=== PATIENT | male | born 1980 | race Hispanic/Latino ===

== ENCOUNTER 2018-09-19 10:49 | Emergency (ER) | payer OTHER, SELFPAY ==
[2018-09-19 11:39] LABS: Absolute Monocytes 0.5 K/uL (0.1-1.3); Absolute Neutrophil 7.6 K/uL (1.8-8.0); Basophils % 0.4 % (0-1.3); Eosinophils % 0.4 % (0-4.4); Hematocrit 48.5 % (39.6-49.0); Lymphocytes % 19.7 % (15.3-44.8); MPV 9.2 fL (7.6-11.3); Monocytes % 5.3 % (3.3-12.3); RBC Red Blood Cell Count 5.81 M/uL (4.33-5.43)
[2018-09-19] MEDS ORDERED: LIDOCAINE VISCOUS 2% SOLN 15 ML UDC ONE (11:43)
[2018-09-19] MEDS ORDERED: MAGNE/ALUM HYDROXD 30 ML UCUP ONE (11:43)
[2018-09-19 11:58] LABS: Albumin 4.1 g/dL (3.4-5.0); Bilirubin Total 0.6 mg/dL (0.2-1.0); Potassium 4.5 mmol/L (3.5-5.1); Protein, Total 7.6 g/dL (6.4-8.2)
[2018-09-19 12:18] LABS: Urine Blood NEGATIVE (NEG); Urine Glucose 2+ (NEG); Urine Protein NEGATIVE (NEG)
--- NOTE | 2018-09-19 12:32 | RAD REPORT ---
EXAM DESCRIPTION: CTAbdomen Pelvis W Contrast - 09/19/2018 12:25 pm CLINICAL HISTORY: Abdominal pain. ABD PAIN COMPARISON: CT-STONE PROTOCOL dated 02/06/2009 TECHNIQUE: Biphasic CT imaging of the abdomen and pelvis was performed with 100 ml non-ionic IV cont rast. All CT scans are performed using dose optimization technique as appropriate and may include automated exposure control or mA/KV adjustment according to patient size. FINDINGS: The lung bases are clear. The liver shows diffuse fatty infiltration. The spleen, pancreas, adrenal glands and kidneys are with in normal limits. No bowel obstruction, free air, free fluid or abscess. The appendix is normal. No evidence of signi ficant lymphadenopathy. No suspicious bony findings. IMPRESSION: No acute intra-abdominal or pelvic finding. Diffuse fatty liver.
--- NOTE | 2018-09-19 12:44 | ER ---
Nurse's Notes [facility] Name: Manish Hernandez Age: 37 yrs Sex: Male : 1980 Arrival Date: 09/19/2018 Time: 10:52 Bed 24 Private MD: Diagnosis: Diabetes Mellitus;Abdominal pain;polyuria Presentation: 09/19 11:05 Presenting complaint: Patient states: Lower mid abdominal cramping that radiates up for aj 2 days, worse at night. Patient reports he has not had a good BM in 2-3 weeks but has not tried OTC medications. Transition of care: patient was not received from another setting of care. Onset of symptoms was September 17, 2018. Risk Assessment: Do you want to hurt yourself or someone else? Patient reports no desire to harm self or others. Initial Sepsis Screen: Does the patient meet any 2 criteria? No. Patient's initial sepsis screen is negative. Does the patient have a suspected source of infection? No. Patient's initial sepsis screen is negative. Care prior to arrival: None. 11:05 Method Of Arrival: Ambulatory 11:05 Acuity: ZHAO 3 aj Triage Assessment: 11:07 General: Appears in no apparent distress. comfortable, Behavior is calm, cooperative, aj appropriate for age. Pain: Complains of pain in umbilical area and suprapubic area Pain currently is 6 out of 10 on a pain scale. Neuro: Level of Consciousness is awake, alert, obeys commands, Oriented to person, place, time, situation, Appropriate for age. Respiratory: Airway is patent Respiratory effort is even, unlabored, Respiratory pattern is regular, symmetrical. GI: Abdomen is non-distended, obese. Derm: Skin is intact, is healthy with good turgor, Skin is pink, warm \\T\\ dry. normal. Historical: - Allergies: 11:07 No Known Allergies; aj - Home Meds: 11:07 None [Active]; aj - PMHx: 11:07 None; aj - PSHx: 11:07 None; aj - Immunization history:: Adult Immunizations up to date. - Social history:: Smoking status: Patient/guardian denies using tobacco. - Ebola Screening: : Patient negative for fever greater than or equal to 101.5 degrees Fahrenheit, and additional compatible Ebola Virus Disease symptoms Patient denies exposure to infectious person Patient denies travel to an Ebola-affected area in the 21 days before illness onset No symptoms or risks identified at this time. Screenin:25 Abuse screen: Denies threats or abuse. Denies injuries from another. Nutritional ss screening: No deficits noted. Tuberculosis screening: Never had TB. Fall Risk None identified. Assessment: 11:30 General: Appears in no apparent distress. comfortable, Behavior is calm, cooperative, ss Denies fever, feeling ill, fatigue, chills. Pain: Complains of pain in suprapubic area and umbilical area Pain currently is 7 out of 10 on a pain scale. Quality of pain is described as crampy, "is worse at night" Pain began 2-3 days ago. Is intermittent. Neuro: Level of Consciousness is awake, alert, obeys commands, Oriented to person, place, time, situation. Cardiovascular: Capillary refill < 3 seconds is brisk in bilateral fingers. Respiratory: Airway is patent Respiratory effort is even, unlabored, Respiratory pattern is regular, symmetrical, Denies cough, shortness of breath pain with respiration, pain with cough, pain with movement. GI: Abdomen is round non-distended, Bowel sounds present X 4 quads. Abd is soft and non tender X 4 quads. Patient currently denies diarrhea, nausea, vomiting. : No signs and/or symptoms were reported regarding the genitourinary system. Denies burning with urination, urinary frequency. EENT: Nares are clear Oral mucosa is moist. Derm: Skin is intact, is healthy with good turgor, Skin is dry, Skin is pink, warm \\T\\ dry. normal. Musculoskeletal: Circulation, motion, and sensation intact. Range of motion: intact in all extremities, Swelling absent. 13:30 Reassessment: Patient appears in no apparent distress at this time. No changes from aj1 previously documented assessment. Patient and/or family updated on plan of care and expected duration. Pain level reassessed. Patient is alert, oriented x 3, equal unlabored respirations, skin warm/dry/pink. Vital Signs: 11:07 BP 140 / 91; Pulse 75; Resp 19; Temp 97.4; Pulse Ox 97% on R/A; Weight 108.86 kg; aj Height 5 ft. 8 in. (172.72 cm); 13:37 BP 137 / 82; Pulse 88; Resp 18; Pulse Ox 97% on R/A; aj1 11:07 Body Mass Index 36.49 (108.86 kg, 172.72 cm) ED Course: 10:52 Patient arrived in ED. rg4 11:00 Peter Kovacs MD is Attending Physician. ps1 11:06 Triage completed. aj 11:07 Arm band placed on left wrist. Patient placed in an exam room, on a stretcher. aj 11:18 Joan Campa RN is Primary Nurse. ss 11:25 Patient has correct armband on for positive identification. Bed in low position. Call ss light in reach. 11:25 Inserted saline lock: 20 gauge in right antecubital area, using aseptic technique. ss Blood collected. 11:35 Urine collected: clean catch specimen, cloudy, flaca colored. jb1 12:23 CT completed. Patient tolerated procedure well. Patient moved to CT via wheelchair. Patient moved back from CT. 12:25 CT Abd/Pelvis - W/Contrast In Process Unspecified. EDMS 13:36 No provider procedures requiring assistance completed. IV discontinued, intact, aj1 bleeding controlled, No redness/swelling at site. Pressure dressing applied. Administered Medications: 11:31 Drug: GI Cocktail without - (Maalox Suspension 30 ml, Lidocaine Liquid 2 % 15 ss ml) Route: PO; Outcome: 12:44 Discharge ordered by . ps1 13:37 Discharged to home ambulatory. aj1 13:37 Condition: good 13:37 Discharge instructions given to patient, family, Instructions given in both [place] and [place] per patient request Instructed on discharge instructions, follow up and referral plans. medication usage, how to check blood sugar, do not take Metformin if FSBS is less than 80, drink juice if blood sugar is less than 80. Patient was given information on local sliding scale clinics as well as the [facility]. Demonstrated understanding of instructions, follow-up care, medications, Prescriptions given X 2. 13:39 Patient left the ED. aj1 Signatures: Dispatcher [employer] EDMS Kaden Sena jb1 Rhea Marin RN RN ajZo Dawkins RN RN aj Jones, Susan Joan Campa RN RN ss Garcia, Rubi rg4 Peter Kovacs MD MD ps1
--- NOTE | 2018-09-19 12:44 | EDPHYS ---
Physician Documentation [facility] Name: Manish Hernandez Age: 37 yrs Sex: Male : 1980 Arrival Date: 09/19/2018 Time: 10:52 Bed 24 Private MD: SADIE Physician Peter Kovacs HPI: 09/19 11:17 This 37 yrs old Male presents to ER via Ambulatory with complaints of ps1 Abdominal Pain. 11:17 patient states his abdominal pain is localized to the lower abdomen without radiation. ps1 He states that he had one other episode about 2 weeks ago that spontaneously resolved. He states that he has intermittent bowel movements that are non-bloody, non-painful, and occur every other day. No diarrhea. Not hard. No fever. He additionally states that he has urinary frequency. He states that he uses the bathroom 3-4 times a night. He has polydipsia. Has not had his BS checked and has not been to a doctor in years. No known medical problems. . Historical: - Allergies: 11:07 No Known Allergies; aj - Home Meds: 11:07 None [Active]; aj - PMHx: 11:07 None; aj - PSHx: 11:07 None; aj - Immunization history:: Adult Immunizations up to date. - Social history:: Smoking status: Patient/guardian denies using tobacco. - Ebola Screening: : Patient negative for fever greater than or equal to 101.5 degrees Fahrenheit, and additional compatible Ebola Virus Disease symptoms Patient denies exposure to infectious person Patient denies travel to an Ebola-affected area in the 21 days before illness onset No symptoms or risks identified at this time. ROS: 11:17 Constitutional: Negative for fever, chills, and weight loss, Eyes: Negative for injury, ps1 pain, redness, and discharge, Cardiovascular: Negative for chest pain, palpitations, and edema, Respiratory: Negative for shortness of breath, cough, wheezing, and pleuritic chest pain, MS/Extremity: Negative for injury and deformity, Skin: Negative for injury, rash, and discoloration, Neuro: Negative for headache, weakness, numbness, tingling, and seizure. 11:17 Abdomen/GI: Positive for abdominal pain. 11:17 Endocrine: Positive for polydipsia, polyuria. ps1 Exam: 11:17 Constitutional: This is a well developed, well nourished patient who is awake, alert, ps1 and in no acute distress. Head/Face: Normocephalic, atraumatic. Eyes: Pupils equal round and reactive to light, extra-ocular motions intact. Lids and lashes normal. Conjunctiva and sclera are non-icteric and not injected. ENT: Nares patent. No nasal discharge, no septal abnormalities noted. Tympanic membranes are normal and external auditory canals are clear. Oropharynx with no redness, swelling, or masses, exudates, or evidence of obstruction, uvula midline. Mucous membranes moist. Chest/axilla: Normal chest wall appearance and motion. Nontender with no deformity. No lesions are appreciated. Cardiovascular: Regular rate and rhythm. No gallops, murmurs, or rubs. Normal PMI, no JVD. No pulse deficits. Respiratory: Lungs have equal breath sounds bilaterally, clear to auscultation and percussion. No rales, rhonchi or wheezes noted. No increased work of breathing, no retractions or nasal flaring. Abdomen/GI: Soft, non-tender, with normal bowel sounds. No distension or tympany. No guarding or rebound. No evidence of tenderness throughout. MS/ Extremity: Pulses equal, no cyanosis. Neurovascular intact. Full, normal range of motion. Neuro: Awake and alert, GCS 15, oriented to person, place, time, and situation. Cranial nerves II-XII grossly intact. Sensory grossly intact. Psych: Awake, alert, with orientation to person, place and time. Behavior, mood, and affect are within normal limits. Vital Signs: 11:07 BP 140 / 91; Pulse 75; Resp 19; Temp 97.4; Pulse Ox 97% on R/A; Weight 108.86 kg; aj Height 5 ft. 8 in. (172.72 cm); 13:37 BP 137 / 82; Pulse 88; Resp 18; Pulse Ox 97% on R/A; aj1 11:07 Body Mass Index 36.49 (108.86 kg, 172.72 cm) aj MDM: 11:16 Patient medically screened. ps1 12:41 Data reviewed: vital signs, nurses notes, lab test result(s), radiologic studies, and ps1 as a result, I will discharge patient. Counseling: I had a detailed discussion with the patient and/or guardian regarding: the historical points, exam findings, and any diagnostic results supporting the discharge/admit diagnosis, lab results, the need for outpatient follow up. Special discussion: New onset diabetes. Will start meformin 500mg bid and refer to primary care with diabetic monitor and strips. . 09/19 11:15 Order name: CBC with Diff; Complete Time: 12:01 ps1 09/19 11:15 Order name: Lipase; Complete Time: 12:01 ps1 09/19 11:15 Order name: CMP; Complete Time: 12: ps1 09/19 11:15 Order name: CT Abd/Pelvis - W/Contrast; Complete Time: 12:41 ps1 09/19 11:24 Order name: Urine Dipstick--Ancillary (enter results) bd 09/19 11:15 Order name: IV Saline Lock; Complete Time: 11:25 ps1 09/19 11:15 Order name: Labs collected and sent; Complete Time: 11:25 ps1 Administered Medications: 11:31 Drug: GI Cocktail without - (Maalox Suspension 30 ml, Lidocaine Liquid 2 % 15 ss ml) Route: PO; Disposition: 09/19/18 12:44 Discharged to Home. Impression: Diabetes Mellitus, Abdominal pain, polyuria. - Condition is Stable. - Discharge Instructions: Diabetes Mellitus and Food, Type 2 Diabetes Mellitus, Self Care, Adult, [id number]. - Prescriptions for Metformin 500 mg Oral Tablet - take 1 tablet by ORAL route once daily for 7 days Then take 1 tablet with morning meals AND evening meals; 21 tablet. DIABETIC MONITOR AND STRIPS - take 1 strip by SUBCUTANEOUS route 3 times per day; 1 box. - Work release form, Medication Reconciliation Form, Thank You Letter, Antibiotic Education, Prescription Opioid Use form. - Follow up: Private Physician; When: As needed; Reason: Further diagnostic work-up, Recheck today's complaints, Re-evaluation by your physician. Follow up: Emergency Department; When: As needed; Reason: Fever > 102 F, Worsening of condition. - Problem is new. - Symptoms are unchanged. Signatures: Dispatcher [employer] EDMS Rhea Marin RN RN ajZo Dawkins RN RN aj Joan Campa RN RN ss Singer, Phillip, MD MD ps1 Corrections: (The following items were deleted from the chart) 12:06 12:05 HEMOGLOBIN A1C+CHEM A1C.LAB.BRZ ordered. EDSC EDMS 13:39 12:44 09/19/2018 12:44 Discharged to Home. Impression: Diabetes Mellitus; Abdominal aj1 pain; polyuria. Condition is Stable. Forms are Medication Reconciliation Form, Thank You Letter, Antibiotic Education, Prescription Opioid Use. Follow up: Private Physician; When: As needed; Reason: Further diagnostic work-up, Recheck today's complaints, Re-evaluation by your physician. Follow up: Emergency Department; When: As needed; Reason: Fever > 102 F, Worsening of condition. Problem is new. Symptoms are unchanged. ps1
== END 2018-09-19 13:39 | disposition home or self-care (01) ==
LOC: ER 10:49
DX: R35.8 Other polyuria (principal); E11.9 Type 2 diabetes mellitus without complications
CPT/HCPCS: 36415; 74177; 80053; 81003; 83690; 85025; 99284; Q9967

== ENCOUNTER 2024-02-02 15:31 | Observation (INO) | payer BC, SELFPAY ==
--- NOTE | 2024-02-02 16:04 | RAD REPORT ---
EXAM: CT brain without contrast HISTORY: STROKE ALERT COMPARISON: None TECHNIQUE: Multiple contiguous axial images were obtained and a CT of the brain without contrast. Sag ittal and coronal reformats were performed. One or more of the following dose reduction techniques were used: Automated exposure control, adjust ment of the mA and/or kV according to patient size, and/or iterative reconstruction. FINDINGS: No evidence of hydrocephalus, intracranial hemorrhage, or extra-axial fluid collection. The brain is normal in morphology. No evidence of midline shift or areas of brain edema. The calvarium is intact. The visualized paranasal sinuses and mastoid air cells are essentially clear . IMPRESSION: No evidence of acute intracranial abnormality. The findings were communicated with Dave Zimmerman MD at 02/02/2024 4:01 PM by telephone.
[2024-02-02 16:18] LABS: Absolute Lymphocytes (CBC) 0.9 K/uL (0.7-4.9); Absolute Monocytes 0.3 K/uL (0.1-1.3); Absolute Neutrophil 8.9 K/uL (1.8-8.0); Basophils % 0.2 % (0-1.3); Hematocrit 43.7 % (39.6-49.0); Hemoglobin 15.2 g/dL (13.6-17.9); Lymphocytes % 8.6 % (15.3-44.8); MCH 29.4 pg (27.0-35.0); MCHC 34.9 g/dL (32.0-36.0); MCV 84.3 fL (80-100); MPV 8.9 fL (7.6-11.3); Neutrophils % 88.2 % (41.7-73.7); Nucleated Red Blood Cells % 0.1 % (0-0); Platelets 233 thou/uL (152-406); RBC Red Blood Cell Count 5.18 M/uL (4.33-5.43); Red Cell Distribution Width 13.1 % (12.1-15.2)
--- NOTE | 2024-02-02 16:22 | RAD REPORT ---
EXAMINATION: CTA HEAD CLINICAL INDICATION: Weakness, r/o stroke TECHNIQUE: Axial CT images were obtained through the head after intravenous contrast utilizing angiog raphic protocol with 3D post-processing (maximum intensity projection images, volume rendered images and/or shaded surface rendered images). One or more of the following dose reduction technique s were used: Automated exposure control, adjustment of the mA and/or kV according to patient size, and/or iterative reconstruction. Unless otherwise specified, incidental findings do not require dedic ated imaging follow-up. COMPARISON: CT head same date FINDINGS: ICA: The petrous, cavernous, and supraclinoid segments of the bilateral internal carotid arteries are normal. The ophthalmic artery origins are visualized and normal. The posterior communicating arteries are patent. IVA: Anterior cerebral arteries are normal bilaterally. The anterior communicating artery is patent. MCA: Middle cerebral arteries are normal bilaterally. [employer]: Posterior cerebral arteries are normal bilaterally. Vertebrobasilar: The vertebral arteries are patent. The basilar artery is normal in appearance. 3D images confirm these findings. IMPRESSION: No significant flow abnormality is identified.
--- NOTE | 2024-02-02 16:23 | RAD REPORT ---
EXAMINATION: ONE VIEW CHEST XR CLINICAL INDICATION: slurred speech TECHNIQUE: Frontal chest projection is submitted. Examination is limited by patient positioning and t echnique. COMPARISON: 08/04/2016 FINDINGS: The lungs are well inflated and clear. The heart is normal in size. No displaced fractures identified . IMPRESSION: No acute intrathoracic abnormalities.
--- NOTE | 2024-02-02 16:26 | RAD REPORT ---
EXAMINATION: CTA NECK CLINICAL INDICATION: slurred speech TECHNIQUE: Axial CT images were obtained from the aortic arch to the skull base after intravenous con trast utilizing angiographic protocol with 3D post-processing (maximum intensity projection images, volume rendered images and/or shaded surface rendered images). One or more of the following dose redu ction techniques were used: Automated exposure control, adjustment of the mA and/or kV according to patient size, and/or iterative reconstruction. Unless otherwise specified, incidental findings do not require dedicated imaging follow-up. COMPARISON: No prior exam. FINDINGS: AORTA: The imaged aortic arch is normal. CCA: The common carotid arteries are patent and normal in caliber. ICA/ECA: Moderate mixed plaque is present proximal right ICA this results in stenosis estimated at 50 -70% based. No significant left-sided stenosis. VERTEBRAL: The cervical vertebral arteries are patent. The vertebral arteries are codominant. SOFT TISSUE: No significant neck soft tissue abnormalities. The visualized lung apices are clear. 3D images confirm these findings. IMPRESSION: Moderate stenosis (50-70%) involving the proximal right ICA. NASCET criteria used. Mild 0-49% stenosis Moderate 50-69% stenosis Severe 70-99% stenosis
[2024-02-02 16:33] LABS: ALT/SGPT 42 U/L (16-61); AST/SGOT 17 U/L (15-37); Albumin 3.9 g/dL (3.4-5.0); Albumin/Globulin Ratio 1.3 (1.1-1.8); Alkaline Phosphatase 114 U/L (45-117); Anion Gap 10.2 mEq/L (5.0-15.0); BUN Blood Urea Nitrogen 7 mg/dL (7-18); Bicarbonate 23 mEq/L (21-32); Bilirubin Total 0.6 mg/dL (0.2-1.0); Glomerular Filtration Rate 92 ml/min (=/>90); Glucose Level 364 mg/dL (74-106); Magnesium 1.5 mg/dL (1.6-2.4); Potassium 4.2 mEq/L (3.5-5.1); Protein, Total 6.9 g/dL (6.4-8.2); Sodium Level 129 mEq/L (136-145); Troponin High Sensitivity 4.6 pg/mL (<58.9)
[2024-02-02 16:34] LABS: Bilirubin Direct < 0.2 mg/dL (0-0.2); Bilirubin Indirect, Calculated 0.4 mg/dL (0.2-0.8)
[2024-02-02] MEDS ORDERED: ASPIRIN 325 MG TAB ONE (16:36)
[2024-02-02] MEDS ORDERED: FOLIC ACID 5 MG/ML VIAL ONE (16:36)
[2024-02-02] MEDS ORDERED: NA CHLORIDE 0.9% 500 ML ONE (16:37)
[2024-02-02 16:40] LABS: PT Prothrombin Time 11.2 SECONDS (9.4-12.5); PTT, Activated Partial Thromb 33.8 SECONDS (24.3-36.9)
--- NOTE | 2024-02-02 16:54 | EDPHYS ---
Physician Documentation [facility] Name: Manish Hernandez Age: 43 yrs Sex: Male : 1980 Arrival Date: 02/02/2024 Time: 15:31 Bed 10 Private MD: ED Physician Dave Zimmerman HPI: 02/01 16:33 This 43 yrs old Male presents to ER via Ambulatory with complaints of S/S of rn Possible Stroke. 16:33 The patient's problem is reported as altered mental status. Onset: The symptoms/episode rn began/occurred this morning. Duration: The episode is continuous. The symptoms are alleviated by nothing. The symptoms are aggravated by nothing. Severity of symptoms: At their worst the symptoms were moderate in the emergency department the symptoms are unchanged. The patient has not experienced similar symptoms in the past. Family reports altered mental status, last known normal for family was 6:30 AM, patient states went to work in about 10:30 AM started feeling dizzy, blurred vision, confusion and slow thought process. No focal neurological deficit otherwise. No head injury. No trauma. No changes in medication. Family reports is diabetic but does not take any medication, is diet controlled. No chest pain or shortness of breath. Denies fever or chills. This is never happened before.. Historical: - Allergies: 15:45 No Known Allergies; ss - PMHx: 15:45 Diabetes mellitus; Hypertensive disorder; ss - PSHx: 15:45 None; ss - Immunization history:: Adult Immunizations up to date. - Infectious Disease History:: Denies. - Social history:: Smoking status: Patient denies any tobacco usage or history of. - Family history:: not pertinent. - Hospitalizations: : No recent hospitalization is reported. ROS: 16:33 Constitutional: Negative for fever, chills, and weight loss, Eyes: Negative for injury, rn pain, redness, and discharge, Neck: Negative for injury, pain, and swelling, Cardiovascular: Negative for chest pain, palpitations, and edema, Respiratory: Negative for shortness of breath, cough, wheezing, and pleuritic chest pain, Abdomen/GI: Negative for abdominal pain, nausea, vomiting, diarrhea, and constipation, Back: Negative for injury and pain, MS/Extremity: Negative for injury and deformity, Skin: Negative for injury, rash, and discoloration, Neuro: Positive for generalized weakness Exam: 16:33 Constitutional: This is a well developed, well nourished patient who is awake, slow to rn respond, sitting upright in chair on his own power, seems slightly altered Head/Face: Normocephalic, atraumatic. Eyes: Pupils equal round and reactive to light, extra-ocular motions intact. No nystagmus ENT: Dry mucous membranes Neck: No meningeal signs Cardiovascular: Tachycardic, regular Respiratory: No increased work of breathing, no retractions or nasal flaring. Abdomen/GI: Soft, non-tender MS/ Extremity: Pulses equal, no cyanosis. Neurovascular intact. Full, normal range of motion. Equal circumference. Neuro: Awake and alert, GCS 15, oriented to person, place, time, and situation. Cranial nerves II-XII grossly intact. Motor strength 4/5 in all extremities. No drift sensory grossly intact. Cerebellar exam normal. 17:17 ECG was reviewed by the Attending Physician. rn Vital Signs: 15:45 BP 150 / 92; Pulse 104; Resp 18; Temp 99; Pulse Ox 95% ; ss 16:35 Temp 98.6(O); ll1 17:11 BP 145 / 83; Pulse 95; Pulse Ox 99% on R/A; MAP 99 mmHg; Pain 0/10; tm6 18:59 BP 144 / 88; Pulse 94; Resp 16; Temp 98.6(O); Pulse Ox 99% on R/A; MAP 99 mmHg; Pain tm6 0/10; 17:11 Pain Scale: Adult tm6 18:59 Pain Scale: Adult tm6 NIH Stroke Scale Scores: 15:42 NIHSS Score: 1 tm6 MDM: 15:37 Patient medically screened. rn 15:46 ED course: Patient states last known normal approximately 9:30 AM, onset of symptoms rn approximately 10:30 AM. Spouse and family report last seen normal for them was at 630 this morning when he left for work.. 15:46 ED course: Patient not TNK candidate due to delay of presentation, is already past 5 rn hours onset of symptoms. Patient presents with generalized confusion and slurred speech, acting more altered or encephalopathic more than focal neurological deficits anyway.. 16:02 ED course: CT head without contrast negative per Dr. Briscoe. rn 16:36 ED course: NIH 1 for slurred speech. rn 16:48 ED course: Pt is improving but still not back to baseline. Will admit for further eval rn and care. MRI ordered. . 16:51 Differential diagnosis: CVA, TIA, metabolic disorder. Data reviewed: vital signs, rn nurses notes, lab test result(s), EKG, radiologic studies, CT scan, and as a result, I will admit patient. Consideration of Admission/Observation Patient was admitted/placed on observation. Escalation of care including admission/observation considered. Counseling: I had a detailed discussion with the patient and/or guardian regarding the historical points, exam findings, and any diagnostic results supporting the discharge/admit diagnosis, lab results, radiology results, the need for further work-up and treatment in the hospital. Response to treatment: the patient's symptoms have mildly improved after treatment, and as a result, I will admit patient. 02/01 15:46 Order name: Basic Metabolic Panel; Complete Time: 16:40 02/01 15:46 Order name: CBC with Diff; Complete Time: 17:44 02/01 15:46 Order name: Hepatic Function; Complete Time: 16:40 rn 02/01 15:46 Order name: High Sensitivity Troponin; Complete Time: 16:40 rn 02/01 15:46 Order name: Magnesium; Complete Time: 16:40 rn 02/01 15:46 Order name: Protime (+inr); Complete Time: 16:47 rn 02/01 15:46 Order name: Ptt, Activated; Complete Time: 16:47 02/01 15:46 Order name: UDS; Complete Time: 17:54 rn 02/01 16:04 Order name: Glucose, Ancillary Testing; Complete Time: 16:27 EDNE 02/01 17:30 Order name: CBC Smear Scan; Complete Time: 17:44 EDNE 02/01 15:46 Order name: CT Neck Angio; Complete Time: 16:27 rn 02/01 15:46 Order name: CT Stroke Brain w/o Contrast; Complete Time: 16:27 rn 02/01 15:46 Order name: Stroke CXR 1 View; Complete Time: 16:27 02/01 15:57 Order name: Head angio; Complete Time: 16:27 EDNE 02/01 16:54 Order name: Brain Wo Cont EDNE 02/01 15:46 Order name: EKG; Complete Time: 15:46 rn 02/01 15:46 Order name: Accucheck; Complete Time: 16:35 rn 02/01 15:46 Order name: Cardiac monitoring; Complete Time: 16:35 rn 02/01 15:46 Order name: EKG - Nurse/Tech; Complete Time: 16:31 rn 02/01 15:46 Order name: IV Saline Lock; Complete Time: 16:35 rn 02/01 15:46 Order name: Labs collected and sent; Complete Time: 16:35 rn 02/01 15:46 Order name: NPO; Complete Time: 16:35 rn 02/01 15:46 Order name: O2 Per Protocol; Complete Time: 16:35 rn 02/01 15:46 Order name: O2 Sat Monitoring; Complete Time: 16:35 rn 02/01 15:46 Order name: Stroke Swallow Screen; Complete Time: 16:35 rn EC:17 Rate is 96 beats/min. Rhythm is regular. QRS [place] is Normal. LA interval is normal. QRS rn interval is normal. QT interval is normal. No Q waves. T waves are Normal. No ST changes noted. Clinical impression: NSR w/ Non-specific ST/T Changes. Interpreted by me. Reviewed by me. Administered Medications: 16:44 Drug: NS 0.9% IV 500 ml IV at bolus once Route: IV; Rate: bolus; Site: right tm6 antecubital; 19:02 Follow up: Response: No adverse reaction; IV Status: Completed infusion; IV Intake: tm6 500ml 16:44 Drug: Aspirin PO 325 mg PO once Route: PO; tm6 17:10 Follow up: Response: No adverse reaction tm6 16:44 Drug: foLIC Acid IVPB 1 mg IVPB once Route: IVPB; Site: right antecubital; tm6 17:10 Follow up: Response: No adverse reaction tm6 19:02 Follow up: Response: No adverse reaction; IV Status: Completed infusion tm6 17:10 Drug: Magnesium Sulfate IVPB 1 grams IVPB once over 1 hrs Route: IVPB; Infused Over: 1 tm6 hrs; Site: right antecubital; 19:01 Follow up: Response: No adverse reaction; IV Status: Completed infusion; IV Intake: tm6 100ml 17:13 Drug: Insulin Regular Human Sub-Q 5 units Sub-Q once {Co-Signature: ll1 (Mervin Karmenjulian tm6 RN).} Route: Sub-Q; Site: abdomen; 19:01 Follow up: Response: No adverse reaction tm6 Disposition Summary: 02/02/24 16:55 Hospitalization Ordered Notes: Hospitalization Status: Inpatient Admission rn Provider: Mikael Degroto rn Condition: Stable(02/02/24 16:55) rn Problem: new(02/02/24 16:55) rn Symptoms: have improved(02/02/24 16:55) rn Bed/Room Type: Standard rn Location: Telemetry/MedSurg (observation)(02/02/24 18:17) bc6 Room Assignment: 224(02/02/24 18:17) 6 Diagnosis - Altered mental status, unspecified(02/02/24 16:55) rn - Hyperglycemia, unspecified(02/02/24 16:55) rn - Hypomagnesemia(02/02/24 16:55) rn Forms: - Medication Reconciliation Form rn - SBAR form rn - Leadership Thank You Letter rn NIH Stroke Scale - NIH Stroke Score Date: 02/02/2024 Time: 15:42 Total Score = 1 10. Dysarthria (speech clarity - read or repeat words) - 0(Normal) 11. Extinction and Inattention (visual/tactile/auditory/spatial/personal) - 0(No abnormality) 1a. Level of Consciousness (LOC) - 1(Not Alert) 1b. Level of Consciousness (LOC) (Month \T\ Age) - 0(Both) 1c. LOC Commands (Open \T\ Closes Eyes/Lab Tech) - 0(Both) 2. Best Gaze (Lateral Gaze Paresis) - 0(Normal) 3. Visual Field Loss - 0(No visual loss) 4. Facial Palsy - 0(Normal) 5a. Left Arm: Motor (10-second hold) - 0(No drift) 5b. Right Arm: Motor (10-second hold) - 0(No drift) 6a. Left Leg: Motor (5-second hold - always test supine) - 0(No drift) 6b. Right Leg: Motor (5-second hold - always test supine) - 0(No drift) 7. Limb Ataxia (finger/nose \T\ heel/call - test with eyes open) - 0(Absent) 8. Sensory Loss (pinprick arms/legs/face) - 0(Normal) 9. Best Language: Aphasia (description/naming/reading) - 0(No aphasia) Initials: tm6 Signatures: Dispatcher [employer] EDMS Dave Zimmerman MD MD rn Joan Iyer, RN RN Bethany Mott 6 Mel Zambrano, RN RN 6 Martell Jeffries RN ll1 Corrections: (The following items were deleted from the chart) 16:54 16:44 MR STROKE PROTOCOL+MRI.RAD.BRZ ordered. EDMS EDMS 16:55 16:53 Home rn rn 16:55 16:53 new rn rn 16:55 16:53 have improved rn rn 16:55 16:53 Stable rn rn 16:55 16:53 Altered mental status, unspecified rn rn 16:55 16:53 Hyperglycemia, unspecified rn rn 16:55 16:53 Hypomagnesemia rn rn 17:47 16:55 rn 6 18:17 16:55 Telemetry/MedSurg (Inpatient) rn [facility] 18:17 17:47 [address] [place] [address] 18:17 18:17 bc6 6
--- NOTE | 2024-02-02 16:54 | ER ---
Nurse's Notes [facility] Name: Manish Hernandez Age: 43 yrs Sex: Male : 1980 Arrival Date: 02/02/2024 Time: 15:31 Bed 10 Private MD: Diagnosis: Altered mental status, unspecified;Hyperglycemia, unspecified;Hypomagnesemia Presentation: 02/01 15:36 Chief complaint: Spouse and/or significant other states: "We think his sugar is high. ss he is dizzy and he just seems a little lost." Denies fever/ feeling. Coronavirus screen: Client denies travel out of the [place] in the last 14 days. Ebola Screen: Patient denies exposure to infectious person. Patient denies travel to an Ebola-affected area in the 21 days before illness onset. 15:36 Method Of Arrival: Ambulatory ss 15:43 Initial Sepsis Screen: Does the patient meet any 2 criteria? No. Patient's initial ss sepsis screen is negative. Does the patient have a suspected source of infection? No. Patient's initial sepsis screen is negative. Risk Assessment: Do you want to hurt yourself or someone else? Patient reports no desire to harm self or others. 15:43 Acuity: ZHAO 2 15:45 Onset of symptoms was February 02, 2024. Triage Assessment: 18:59 The onset of the patients symptoms was more than three but less than six hours ago. tm6 General: Appears in no apparent distress. Stroke Activation: Symptom onset > 6 hours Physician: ED Attending; Name: ; Notified At: ; Arrived At: Physician: Mid-Level Provider; Name: ; Notified At: ; Arrived At: Physician: [not used]; Name: ; Notified At: ; Arrived At: Physician: [not used]; Name: ; Notified At: ; Arrived At: Physician: [not used]; Name: ; Notified At: ; Arrived At: Historical: - Allergies: 15:45 No Known Allergies; ss - PMHx: 15:45 Diabetes mellitus; Hypertensive disorder; ss - PSHx: 15:45 None; ss - Immunization history:: Adult Immunizations up to date. - Infectious Disease History:: Denies. - Social history:: Smoking status: Patient denies any tobacco usage or history of. - Family history:: not pertinent. - Hospitalizations: : No recent hospitalization is reported. Screenin:30 [place] Swallow Protocol Exclusion Criteria: Exclusion Criteria Result: Proceed Brief tm6 Cognitive Screen What is your name? Normal, Where are you right now? Normal, What year is it? Normal. Oral Mechanism Examination Facial Symmetry: Normal, Motion: Normal, Lip Closure: Normal, Oral Mechanism Result: Normal. 3 oz Water Swallow Challenge: Pt able to drink all water without stopping, coughing, choking or throat clearing: Yes Result: PASS. 19:00 [facility] ED Fall Risk Assessment (Adult) History of falling in the last 3 months, tm6 including since admission No falls in past 3 months (0 pts) Confusion or Disorientation No (0 pts) Intoxicated or Sedated No (0 pts) Impaired Gait No (0 pts) Mobility Assist Device Used No (0 pt) Altered Elimination No (0 pt) Score/Fall Risk Level 0 - 2 = Low Risk Oriented to surroundings, Maintained a safe environment, Educated pt \\T\\ family on fall prevention, incl call for assistance when getting out of bed. Abuse screen: Denies threats or abuse. Denies injuries from another. Nutritional screening: No deficits noted. Tuberculosis screening: No symptoms or risk factors identified. Assessment: 15:42 Reassessment: Dr. Zimmerman with patient in triage assessing patient. CODE STROKE CALLED AT THIS TIME> Last known well is 0930 this morning. 15:42 VAN Scoring: Arm Drift: Patients demonstrates NO arm weakness. Patient is VAN Negative. tm6 Visual Disturbance: No visual disturbance noted. Aphasia: No aphasia noted. Neglect: No neglect noted. TNKase (Tenecteplase) Screening: Contraindications: Patient reports onset of signs and symptoms of stroke greater than 6 hours ago: Yes. General: Appears in no apparent distress. Behavior is calm, cooperative. Neuro: Level of Consciousness is awake, obeys commands, Oriented to person, place, time, situation, Speech is normal. Neuro: Reports dizziness, Denies difficulty swallowing, headache. Respiratory: Airway is patent Respiratory effort is even, unlabored, Respiratory pattern is regular, symmetrical. 15:42 [place] Swallow Protocol Exclusion Criteria: Unable to remain alert for testing: No NPO tm6 for medical/surgical reason by provider order No Tracheostomy tube present No No thin liquids due to preexisting dysphagia/baseline modified diet thickened liquids No Exclusion Criteria Result: Proceed Brief Cognitive Screen What is your name? Normal, Where are you right now? Normal, What year is it? Normal. Oral Mechanism Examination Facial Symmetry: Normal, Motion: Normal, Lip Closure: Normal, Oral Mechanism Result: Normal. 3 oz Water Swallow Challenge: Pt able to drink all water without stopping, coughing, choking or throat clearing: Yes Result: PASS Notified: Dave Zimmerman MD. 17:24 Reassessment: Pt to MRI now with ZARI Bermeo. 18:00 Reassessment: Spoke with patient who states he took an edible gummy from the [employer] store this morning at [address] Zimmerman and Dr. Degroot notified. 18:33 Reassessment: report faxed to [facility], confirmed by Olivia. tm6 18:42 Reassessment: Pt ambulated to restroom with steady gait. ss Vital Signs: 15:45 BP 150 / 92; Pulse 104; Resp 18; Temp 99; Pulse Ox 95% ; ss 16:35 Temp 98.6(O); ll1 17:11 BP 145 / 83; Pulse 95; Pulse Ox 99% on R/A; MAP 99 mmHg; Pain 0/10; tm6 18:59 BP 144 / 88; Pulse 94; Resp 16; Temp 98.6(O); Pulse Ox 99% on R/A; MAP 99 mmHg; Pain tm6 0/10; 17:11 Pain Scale: Adult tm6 18:59 Pain Scale: Adult tm6 NIH Stroke Scale Scores: 15:42 NIHSS Score: 1 tm6 ED Course: 15:33 Patient arrived in ED. mg5 15:37 Dave Zimmerman MD is Attending Physician. rn 15:45 Triage completed. ss 15:45 Arm band placed on. ss 15:50 Inserted saline lock: 20 gauge in right antecubital area, using aseptic technique. ss ,using aseptic technique. Insertion by LUCY Cordoba in CT Blood collected. Flushed with 10 mL NS. 15:59 CT Stroke Brain w/o Contrast In Process Unspecified. EDMS 16:00 Client placed on continuous cardiac and pulse oximetry monitoring. NIBP monitoring tm6 applied. court recording monitor on. Pulse ox on. NIBP on. 16:05 CT Neck Angio In Process Unspecified. EDMS 16:06 Head angio In Process Unspecified. EDMS 16:16 Stroke CXR 1 View In Process Unspecified. EDMS 16:31 Mel Zambrano, RN is Primary Nurse. tm6 16:31 EKG done, by ED staff, reviewed by Dave Zimmerman MD. tm6 16:55 Mikael Degroot is Hospitalizing Provider. rn 17:31 UDS Sent. tm6 19:00 Patient has correct armband on for positive identification. Provided Education on: need tm6 for admit. 19:00 No provider procedures requiring assistance completed. Patient admitted, IV remains in tm6 place. Administered Medications: 16:44 Drug: NS 0.9% IV 500 ml IV at bolus once Route: IV; Rate: bolus; Site: right tm6 antecubital; 19:02 Follow up: Response: No adverse reaction; IV Status: Completed infusion; IV Intake: tm6 500ml 16:44 Drug: Aspirin PO 325 mg PO once Route: PO; tm6 17:10 Follow up: Response: No adverse reaction tm6 16:44 Drug: foLIC Acid IVPB 1 mg IVPB once Route: IVPB; Site: right antecubital; tm6 17:10 Follow up: Response: No adverse reaction tm6 19:02 Follow up: Response: No adverse reaction; IV Status: Completed infusion tm6 17:10 Drug: Magnesium Sulfate IVPB 1 grams IVPB once over 1 hrs Route: IVPB; Infused Over: 1 tm6 hrs; Site: right antecubital; 19:01 Follow up: Response: No adverse reaction; IV Status: Completed infusion; IV Intake: tm6 100ml 17:13 Drug: Insulin Regular Human Sub-Q 5 units Sub-Q once {Co-Signature: ll1 (Martell Jeffries tm6 RN).} Route: Sub-Q; Site: abdomen; 19:01 Follow up: Response: No adverse reaction tm6 Medication: 15:42 VIS not applicable for this client. tm6 Intake: 19:01 IV: 100ml; Total: 100ml. tm6 19:02 IV: 500ml; Total: 600ml. tm6 Outcome: 16:53 Discharge ordered by . rn 16:55 Decision to Hospitalize by Provider. rn 19:00 Admitted to Med/surg accompanied by nurse, via wheelchair, room 224, with chart, tm6 19:00 Condition: stable 19:00 Instructed on the need for admit, 19:01 Patient left the ED. tm6 NIH Stroke Scale - NIH Stroke Score Date: 02/02/2024 Time: 15:42 Total Score = 1 10. Dysarthria (speech clarity - read or repeat words) - 0(Normal) 11. Extinction and Inattention (visual/tactile/auditory/spatial/personal) - 0(No abnormality) 1a. Level of Consciousness (LOC) - 1(Not Alert) 1b. Level of Consciousness (LOC) (Month \\T\\ Age) - 0(Both) 1c. LOC Commands (Open \\T\\ Closes Eyes/Nutrition Partner) - 0(Both) 2. Best Gaze (Lateral Gaze Paresis) - 0(Normal) 3. Visual Field Loss - 0(No visual loss) 4. Facial Palsy - 0(Normal) 5a. Left Arm: Motor (10-second hold) - 0(No drift) 5b. Right Arm: Motor (10-second hold) - 0(No drift) 6a. Left Leg: Motor (5-second hold - always test supine) - 0(No drift) 6b. Right Leg: Motor (5-second hold - always test supine) - 0(No drift) 7. Limb Ataxia (finger/nose \\T\\ heel/call - test with eyes open) - 0(Absent) 8. Sensory Loss (pinprick arms/legs/face) - 0(Normal) 9. Best Language: Aphasia (description/naming/reading) - 0(No aphasia) Initials: tm6 Signatures: Dispatcher [employer] EDMS Dave Zimmerman MD MD rn Blanchard, Shelby, RN RN Martell Jeffries RN RN ll1 Eloisa Prasad [facility] Mel Zambrano RN RN 6 Martell Jeffries RN ll1
[2024-02-02] MEDS ORDERED: INSULIN REGULAR (HUMAN) 100 UNIT/ML ONE (16:57)
[2024-02-02] MEDS ORDERED: MAGNESIUM SULFATE 1 gm IVPB 1 GM/100 ML BAG IV ONE (16:58)
[2024-02-02 17:30] LABS: Blood Morphology Comment NOT SEEN (NOT SEEN); Platelet Estimate ADEQ; White Blood Cell Scan OK (OK)
[2024-02-02] MEDS ORDERED: ACETAMINOPHEN 500 MG TAB PO PRN (17:34)
[2024-02-02] MEDS ORDERED: GLUCAGON 1 MG/VIAL IM PRN (17:34)
[2024-02-02] MEDS ORDERED: ONDANSETRON 4 MG/2 ML VIAL IV PRN (17:34)
[2024-02-02] MEDS ORDERED: D10W 125 ML IV PRN (17:34)
--- NOTE | 2024-02-02 17:39 | P.HP ---
Certification for Inpatient Patient admitted to: Observation With expected LOS: <2 Midnights Practitioner: I am a practitioner with admitting privileges, knowledge of patient current condition, hospital course, and medical plan of care. Services: Services provided to patient in accordance with Admission requirements found in Title 42 Section 412.3 of the Code of Federal Regulations Patient History Date of Service: 02/03/24 Reason for admission: Altered mental status History of Present Illness: 43-year-old gentleman who reports a diagnosis of diabetes about 4 years ago, noncompliant with treatment was brought to the emergency department due to altered mental status and lightheadedness. Family report patient seemed confused this morning, symptoms persist for about 4 hours prompting the ED visit. Stroke protocol was initiated in the ED, head CT negative, EKG showed sinus rhythm, blood work significant for severe hyperglycemia. Urine toxicology screen positive for THC. Patient admitted to taking some Gummies this morning prior to the onset of his symptoms. Patient given IV hydration. Family reports some improvement in his mental status while in the ED. Patient noted to be awake, oriented x 4, and interactive during my examination in the ED. He is hospitalized for further management. Allergies No Known Allergies Allergy (Unverified 08/04/16 11:03) Home Medications: Aspirin [Aspirin EC 81 MG] 81 mg PO DAILY #30 tab 02/03/24 Atorvastatin Calcium [Lipitor] 40 mg PO BEDTIME #30 tab 02/03/24 Glimepiride 1 mg PO DAILY #30 tab 02/03/24 Metformin HCl [Glucophage*] 500 mg PO BIDWM #60 tab 02/03/24 - Past Medical/Surgical History Diabetic: Yes -: Diabetes mellitus -: None - Family History Mother -: Diabetes Father -: Diabetes - Social History Smoking Status: Current some day smoker Alcohol use: Yes CD- Drugs: No Place of Residence: Home Review of Systems Other: No reported fever, no reported diarrhea. Patient endorsed thirst and increased urination. He denied any chest pain or shortness of breath. He denied any headache, no reported or witnessed seizures. Except as documented, all other systems reviewed and negative. Physical Examination - Physical Exam General: In no apparent distress, Oriented x3, Other (Mild drowsiness) HEENT: Atraumatic, Normocephalic, PERRLA, Mucous membr. moist/pink, EOMI, Sclerae nonicteric Neck: Supple, JVD not distended Respiratory: Clear to auscultation bilaterally, Normal air movement Cardiovascular: No edema, Regular rate/rhythm, Normal S1 S2 Capillary refill: <2 Seconds Gastrointestinal: Normal bowel sounds, Soft and benign, Non-distended, No tenderness Musculoskeletal: No swelling Integumentary: No rashes, No cyanosis Neurological: Normal speech, Normal strength at 5/5 x4 extr, Cranial nerves 3-12 intact Lymphatics: No axilla or inguinal lymphadenopathy - Studies Laboratory Data (last 24 hrs) 02/02/24 02/02/24 02/02/24 16:00 16:00 16:00 WBC 10.10 Hgb 15.2 Hct 43.7 Plt Count 233 PT 11.2 INR 1.00 APTT 33.8 Sodium 129 L Potassium 4.2 BUN 7 Creatinine 1.03 Glucose 364 H Magnesium 1.5 L Total Bilirubin 0.6 AST 17 ALT 42 Alkaline Phosphatase 114 Assessment and Plan - Problems (Diagnosis) (1) Acute metabolic encephalopathy Current Visit: Yes Status: Acute (2) Type 2 diabetes mellitus Current Visit: Yes Status: Acute (3) Marijuana use Current Visit: Yes Status: Acute - Plan Etiology of altered mental status: Hyperglycemia versus substance abuse. Patient admitted to taking marijuana Gummies. Place patient under observation. Check hemoglobin A1c Aggressive blood sugar management with insulin sliding scale pending hemoglobin A1c result. Aggressively hydrate with IV normal saline Monitor electrolyte Stroke protocol initiated in the ED. Patient is oriented x 4 and has no neurologic deficit. He is ambulatory, no problem with swallowing or speech and no limb weakness. He therefore does not need rehab services evaluation. MRI of the brain is pending Start aspirin and Lipitor for the meantime while we rule out acute CVA Obtain echocardiogram as part of workup for CVA Neurochecks ADA diet DVT prophylaxis: Lovenox Advanced directive: Full code. - Advance Directives Does patient have a Living Will: No Does patient have a Durable POA for Healthcare: No
[2024-02-02 17:44] LABS: Barbiturates NEGATIVE (NEGATIVE); Benzodiazepines NEGATIVE (NEGATIVE); Cocaine NEGATIVE (NEGATIVE); METHAMPHETAM NEGATIVE (NEGATIVE); Methadone NEGATIVE (NEGATIVE); Opiates NEGATIVE (NEGATIVE); Phencyclidine NEGATIVE (NEGATIVE); THC Cannibis POSITIVE (NEGATIVE)
--- NOTE | 2024-02-02 18:16 | RAD REPORT ---
EXAMINATION: MRI BRAIN WITHOUT CONTRAST CLINICAL INDICATION: CONFUSED TECHNIQUE: Multiplanar multisequence MR images of the brain were obtained without intravenous contras t. Unless otherwise specified, incidental findings do not require dedicated imaging follow-up. COMPARISON: Same day [facility] imaging was reviewed. FINDINGS: INTRACRANIAL: Diffusion-weighted images show no acute or early subacute infarction. No abnormal brain parenchymal signal. The ventricles are normal in size and morphology. No augmented susceptibility. There is no mass effect or midline shift. No abnormal extraaxial fluid collection. VASCULATURE: Normal signal voids in the larger intracranial arteries and dural venous sinuses. SINUSES: The paranasal sinuses and mastoid air cells are predominantly clear. BONE: The marrow signal pattern is within normal limits. IMPRESSION: No significant intracranial abnormalities.
[2024-02-02] MEDS: NA CHLORIDE 0.9% 1,000 ML IV SCH (20:23)
[2024-02-02] MEDS: ATORVASTATIN 40 MG TAB PO SCH (20:24)
[2024-02-02] MEDS: INSULIN REGULAR (HUMAN) 100 UNIT/ML SQ SCH (21:17)
[2024-02-02 22:29] VITALS: BMI 34.3
[2024-02-03 05:01] LABS: Absolute Basophils 0.2 K/uL (0-0.5); Absolute Eosinophils 0.1 K/uL (0-0.5); Absolute Lymphocytes (CBC) 2.2 K/uL (0.7-4.9); Absolute Monocytes 0.6 K/uL (0.1-1.3); Absolute Neutrophil 5.7 K/uL (1.8-8.0); Basophils % 1.8 % (0-1.3); Eosinophils % 1.2 % (0-4.4); Hematocrit 41.4 % (39.6-49.0); Hemoglobin 14.3 g/dL (13.6-17.9); MCH 29.3 pg (27.0-35.0); MCHC 34.6 g/dL (32.0-36.0); MCV 84.6 fL (80-100); MPV 9.1 fL (7.6-11.3); Monocytes % 6.5 % (3.3-12.3); Neutrophils % 65.5 % (41.7-73.7); Nucleated Red Blood Cells % 0.1 % (0-0); Platelets 230 thou/uL (152-406); Red Cell Distribution Width 12.9 % (12.1-15.2)
[2024-02-03 05:38] LABS: Albumin 3.2 g/dL (3.4-5.0); Albumin/Globulin Ratio 1.1 (1.1-1.8); Anion Gap 7.9 mEq/L (5.0-15.0); Bilirubin Total 0.4 mg/dL (0.2-1.0); Globulin 2.8 g/dL (2.3-3.5); Magnesium 1.8 mg/dL (1.6-2.4); Phosphorus 2.7 mg/dL (2.5-4.9); Potassium 3.9 mEq/L (3.5-5.1); Thyroid Stimulating Hormone 0.694 uIU/mL (0.358-3.740)
[2024-02-03] MEDS: ENOXAPARIN 40 MG/0.4 ML SQ SCH (08:26)
[2024-02-03] MEDS: ASPIRIN EC 81 MG TAB PO SCH (08:26)
[2024-02-03 08:28] VITALS: TEMP 98.6
[2024-02-03 08:30] VITALS: O2SAT 99
[2024-02-03 08:32] VITALS: BP 144/88
--- NOTE | 2024-02-03 09:14 | P.DS ---
Admission Date: 02/02/24 Discharge Date: 02/03/24 Disposition: ROUTINE DISCHARGE Discharge Condition: FAIR Reason for Admission: Altered mental status - Problems (1) Acute metabolic encephalopathy Current Visit: Yes Status: Acute (2) Type 2 diabetes mellitus Current Visit: Yes Status: Acute (3) Marijuana use Current Visit: Yes Status: Acute Brief History of Present Illness: 43-year-old gentleman who reports a diagnosis of diabetes about 4 years ago, noncompliant with treatment was brought to the emergency department due to altered mental status and lightheadedness. Family report patient seemed confused this morning, symptoms persist for about 4 hours prompting the ED visit. Stroke protocol was initiated in the ED, head CT negative, EKG showed sinus rhythm, blood work significant for severe hyperglycemia. Urine toxicology screen positive for THC. Patient admitted to taking some Gummies this morning prior to the onset of his symptoms. Patient given IV hydration. Family reports some improvement in his mental status while in the ED. Patient noted to be awake, oriented x 4, and interactive during my examination in the ED. He is hospitalized for further management. Hospital Course: Patient placed under observation on the medical floor. His mental status improved to normal and patient was alert and oriented during my examination in the ED. Patient admitted to ingesting marijuana gummies. He remained awake and alert during the hospital stay. His blood sugar improved with IV hydration and insulin therapy. MRI of the brain was done which was negative for acute CVA. CTA head and neck were all unremarkable showing no vessel occlusion. Patient had no neurologic symptoms, had no trouble swallowing, no speech problem and therefore did not require speech evaluation. He is ambulatory, no problem with gait or balance since examination in the ER for admission and therefore does not require physical therapy evaluation. Patient admitted to noncompliance with his blood sugar. He was severely hyperglycemic on arrival to the ED. Patient brief period of delirium is likely related to severe hyperglycemia. Blood pressure is borderline elevated. No prior diagnosis of hypertension. Patient will need follow-up with PCP for BP monitoring in order to diagnose hypertension. LDL within normal range. Lifestyle modification with dietary changes advised and statin prescribed. Patient has hemoglobin A1c of 11. I offered insulin therapy but patient declined and wants to resume his oral hypoglycemics. He was made aware that oral hypoglycemics may not be able to bring his hemoglobin A1c is to target of less than 7. Patient adamant on oral hypoglycemics and refused insulin therapy. Patient discharged with oral metformin and glimepiride. Vital Signs/Physical Exam: Temp Pulse Resp BP Pulse Ox 98.6 F 94 H 16 144/88 H 97 02/03/24 08:30 02/03/24 08:30 02/03/24 08:30 02/03/24 08:30 02/03/24 08:00 Laboratory Data at Discharge: WBC 8.70 thou/uL (4.3-10.9) 02/03/24 04:05 Hgb 14.3 g/dL (13.6-17.9) 02/03/24 04:05 Hct 41.4 % (39.6-49.0) 02/03/24 04:05 Plt Count 230 thou/uL (152-406) 02/03/24 04:05 PT 11.2 SECONDS (9.4-12.5) 02/02/24 16:00 INR 1.00 02/02/24 16:00 APTT 33.8 SECONDS (24.3-36.9) 02/02/24 16:00 Sodium 138 mEq/L (136-145) D 02/03/24 04:05 Potassium 3.9 mEq/L (3.5-5.1) 02/03/24 04:05 BUN 9 mg/dL (7-18) 02/03/24 04:05 Creatinine 0.86 mg/dL (0.70-1.30) 02/03/24 04:05 Glucose 253 mg/dL (74-106) H 02/03/24 04:05 Phosphorus 2.7 mg/dL (2.5-4.9) 02/03/24 04:05 Magnesium 1.8 mg/dL (1.6-2.4) 02/03/24 04:05 Total Bilirubin 0.4 mg/dL (0.2-1.0) 02/03/24 04:05 AST 16 U/L (15-37) 02/03/24 04:05 ALT 37 U/L (16-61) 02/03/24 04:05 Alkaline Phosphatase 100 U/L (45-117) 02/03/24 04:05 LDL Cholesterol Direct 115 mg/dL (100-129) 02/03/24 04:05 Home Medications: Aspirin [Aspirin EC 81 MG] 81 mg PO DAILY #30 tab 02/03/24 Atorvastatin Calcium [Lipitor] 40 mg PO BEDTIME #30 tab 02/03/24 Glimepiride 1 mg PO DAILY #30 tab 02/03/24 Metformin HCl [Glucophage*] 500 mg PO BIDWM #60 tab 02/03/24 New Medications: Aspirin [Aspirin EC 81 MG] 81 mg PO DAILY #30 tab Glimepiride 1 mg PO DAILY #30 tab Metformin HCl [Glucophage*] 500 mg PO BIDWM #60 tab Atorvastatin Calcium [Lipitor] 40 mg PO BEDTIME #30 tab Physician Discharge Instructions: CAUTION: Please do not take glimepiride without eating. Diet: ADA Activity: Ad juany Followup: NONE,NONE [Primary Care Provider] -
[2024-02-03] MEDS ORDERED: INFLUENZA VACCINE (for 6+ mo) 0.5 ML DOSE IMVAC ONE (11:00)
--- NOTE | 2024-02-03 16:34 | EKG ---
Test Date: 2024-02-02 Test Time: 16:28:32 Client Business Manager: ARAM MEASUREMENT RESULTS: Intervals: Rate: 96 DC: 148 QRSD: 82 QT: 352 QTc: 444 [place]: P: 53 DC: 148 QRS: 72 T: 5 INTERPRETIVE STATEMENTS: Normal sinus rhythm Cannot rule out Inferior infarct, age undetermined Abnormal ECG Compared to ECG 08/04/2016 07:18:25 Myocardial infarct finding now present Sinus arrhythmia no longer present Electronically Signed On 02-03-24 16:31:59 CDT by Celio Shields
--- NOTE | 2024-02-06 06:58 | ECHO ---
HEIGHT: 5 ft 8 in WEIGHT: 226 lb 0 oz DATE OF STUDY: 02/03/[address]: Mikael Degroot MD 2-DIMENSIONAL: YES M.MODE: YES DOPPLER: YES COLOR FLOW: YES TDS: PORTABLE: YES DEFINITY: BUBBLE STUDY: DIAGNOSIS: ALTERED MENTAL STATUS, ASSESSING FOR CEREBRAL VASCULAR ACCIDENT CARDIAC HISTORY: CATHERIZATION: NO SURGERY: NO PROSTHETIC VALVE: NO PACEMAKER: NO MEASUREMENTS (cm) DIASTOLIC (NORMALS) SYSTOLIC (NORMALS) IVSd 1.1 (0.6-1.2) LA Diam 3.0 (1.9-4.0) LVEF 60-65% LVIDd 4.0 (3.5-5.7) LVIDs 2.5 (2.0-3.5) %FS 37% LVPWd 1.2 (0.6-1.2) Ao Diam 3.0 (2.0-3.7) 2 DIMENSIONAL ASSESSMENT: RIGHT ATRIUM: NORMAL LEFT ATRIUM: NORMAL RIGHT VENTRICLE: NORMAL LEFT VENTRICLE: NORMAL TRICUSPID VALVE: TRACE TRICUSPID REGURGITATION MITRAL VALVE: NORMAL PULMONIC VALVE: NORMAL AORTIC VALVE: NORMAL PERICARDIAL EFFUSION: NONE AORTIC ROOT: NORMAL LEFT VENTRICULAR WALL MOTION: NORMAL DOPPLER/COLOR FLOW: NORMAL COMMENTS: 1. NORMAL LEFT VENTRICULAR EJECTION FRACTION 60-65% WITH NORMAL WALL MOTION 2. NORMAL DIASTOLIC FUNCTION 3. TRACE TRICUSPID REGURGITATION 4. BUBBLE STUDY WAS NEGATIVE FOR INTRA-CARDIAC SHUNT TECHNOLOGIST: ANSELMO MEYERS
== END 2024-02-03 11:45 | disposition home or self-care (01) ==
LOC: ER 15:31 → ERHOLD 17:32 → INTOOBSV 17:32 → 2ND 18:52
PROVIDERS: ADMIT Internal Medicine; ATTEND Internal Medicine
DX: G93.41 Metabolic encephalopathy (principal); R41.82 Altered mental status, unspecified; R42 Dizziness and giddiness; E11.65 Type 2 diabetes mellitus with hyperglycemia; F12.90 Cannabis use, unspecified, uncomplicated; Z79.82 Long term (current) use of aspirin
CPT/HCPCS: 96365; 93005; 93306; 85025 ×2; 80048; 36415; 83721; 83735 ×2; 84100; 85610; 80061; 82947 ×3; 80076; 85730; 84443; 83036; 84484; 80053; 80307; 70496; 70498; 70450; 71045; 70551; 96372; 99285; Q9967; Q2035; J3475; J1650; J7040; J7030 ×2; G0378 ×3